=== PATIENT | female | born 1975 | race Caucasian/White ===

== ENCOUNTER 2018-04-12 09:16 | Day surgery (SDC) | payer MEDICAID ==
[2018-04-12] MEDS ORDERED: Lactated Ringer's 500 ML IV ONE ×2 (11:53)
[2018-04-12] MEDS ORDERED: Propofol 10 mg/ml Inj (20 ML) ONE ×2 (12:04→12:10)
[2018-04-12 12:22] VITALS: TEMP 98
[2018-04-12 12:34] VITALS: O2SAT 100
[2018-04-12 13:19] VITALS: BP 105/61; PULSE 83; RESP 22
== END 2018-04-12 13:18 | disposition home or self-care (01) ==
LOC: C.ENDO 09:16
PROVIDERS: ATTEND Internal Medicine Gastroenterology
DX: R10.13 Epigastric pain (principal); K29.70 Gastritis, unspecified, without bleeding
CPT/HCPCS: 43239; 84703; 88305; J2704; J7120